=== PATIENT | male | born 1980 | race Caucasian/White ===

== ENCOUNTER 2020-06-22 21:10 | Emergency (ER) | payer BC ==
[~2020-06-22] VITALS: Ht 182.9 cm; Wt 104.3 kg
[2020-06-23] MEDS ORDERED: TAMS0.4C PO (10:03)
[2020-06-23] MEDS ORDERED: ULTRAM50 MG PO (10:03)
[2020-06-23] MEDS ORDERED: LEVOFLOXACIN500 MG PO (10:03)
== END 2020-06-23 10:26 | disposition home or self-care (01) ==
LOC: ER 21:10
DX: N13.5 Crossing vessel and stricture of ureter without hydronephrosis (principal); Z03.818 Encounter for observation for suspected exposure to other biological agents ruled out; R11.2 Nausea with vomiting, unspecified; R10.84 Generalized abdominal pain; R07.89 Other chest pain

== ENCOUNTER 2021-07-30 13:07 | Outpatient (CLI) | payer OTHER ==
[~2021-07-30 13:07] MED LIST: LEVOFLOXACIN500 MG PO; TAMS0.4C PO; ULTRAM50 MG PO
== END 2021-07-30 13:20 | disposition home or self-care (01) ==
LOC: RAD 13:07
DX: J01.90 Acute sinusitis, unspecified (principal)

== ENCOUNTER 2021-08-04 14:30 | Outpatient (CLI) | payer OTHER | END 2021-08-04 15:30 | disposition home or self-care (01) | LOC: ASH CLINIC 14:30 | DX: U07.1 COVID-19 (principal); Z23 Encounter for immunization ==